=== PATIENT | female | born 1975 | race American Indian/Alaskan Native ===

== ENCOUNTER 2019-09-12 19:31 | Emergency (ER) | payer SELFPAY ==
[2019-09-12 19:59] VITALS: BP 151/98
--- NOTE | 2019-09-12 23:15 | XRay Report ---
CHEST 2 VIEWS INDICATION / CLINICAL INFORMATION: Cough, chest pain. Possible chemical exposure COMPARISON: None available. FINDINGS: SUPPORT DEVICES: None. HEART / MEDIASTINUM: No significant abnormality. LUNGS / PLEURA: No significant pulmonary or pleural abnormality. No pneumothorax. ADDITIONAL FINDINGS: No significant additional findings. IMPRESSION: 1. No acute findings. Signer Name: Humaira Good MD Signed: 09/12/2019 11:11 PM Workstation Name: [id number]
--- NOTE | 2019-09-13 00:23 | Emergency Department Report ---
- General Chief Complaint: Upper Respiratory Infection Stated Complaint: BAD COUGH,CHEST PAIN Source: patient Mode of arrival: Ambulatory Limitations: No Limitations - History of Present Illness Initial Comments: Patient is a 43-year-old -Faro[place] female with a history of heavy tobacco abuse who presents to the ED with acute onset persistent frontal sinus pressure and headache, nasal and sinus congestion, persistent dry cough with wheezing and shortness of breath for the last 2 days. 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 Patient states that her symptoms are worse at night when she lays down to sleep such that the cough and the congestion impede her sleep. Patient denies chest pain, dizziness, syncope, fever, chills, sore throat, nausea, vomiting, abdominal pain, headache, back pain, hemoptysis, or diarrhea. MD Complaint: cough, rhinorrhea, nasal congestion, sinus pain -: Sudden, days(s) (2) Severity: severe Severity scale (0 -10): 7 Quality: sharp, aching Consistency: constant Improves With: nothing Worsens With: deep breaths Associated Symptoms: denies other symptoms, rhinorrhea, nasal congestion, cough. denies: fever, chills, headache, sore throat, chest pain, shortness of breath, abdominal pain, nausea, vomiting, diarrhea, rash, confusion, right sweats, weight loss, epistaxis, hoarseness, ear pain Treatments Prior to Arrival: none - Related Data Previous Rx's Medication Instructions Recorded Last Taken Type Albuterol Sulfate [Proventil Hfa] 1 - 2 puff IH Q6H PRN #1 hfa.aer.ad 09/13/19 Unknown Rx Azithromycin [Zithromax Z-GRACIELA] 250 mg PO DAILY #6 tablet 09/13/19 Unknown Rx Benzonatate [Tessalon Perles] 100 mg PO Q8HR #30 capsule 09/13/19 Unknown Rx Cetirizine HCl [Zyrtec 10mg tab] 10 mg PO DAILY #30 tablet 09/13/19 Unknown Rx Ibuprofen [Motrin] 600 mg PO Q8H PRN #20 tablet 09/13/19 Unknown Rx methylPREDNISolone [Medrol 4MG 4 mg PO DAILY #21 tab.ds.pk 09/13/19 Unknown Rx DOSEPAK (21 tabs)] Allergies Allergy/AdvReac Type Severity Reaction Status Date / Time No Known Allergies Allergy Unverified 11/20/15 15:47 ED Review of Systems ROS: Stated complaint: BAD COUGH,CHEST PAIN Other details as noted in HPI Constitutional: denies: chills, fever Eyes: denies: eye pain, eye discharge, vision change ENT: congestion, other (Frontal sinus pressure and headache). denies: ear pain, throat pain Respiratory: cough, shortness of breath. denies: wheezing Cardiovascular: denies: chest pain, palpitations Endocrine: no symptoms reported Gastrointestinal: denies: abdominal pain, nausea, vomiting, diarrhea Genitourinary: denies: urgency, dysuria, discharge Musculoskeletal: denies: back pain, joint swelling, arthralgia Skin: denies: rash, lesions Neurological: headache. denies: weakness, paresthesias Psychiatric: denies: anxiety, depression Hematological/Lymphatic: denies: easy bleeding, easy bruising ED Past Medical Hx - Past Medical History Previous Medical History?: No - Surgical History Past Surgical History?: Yes Hx Cholecystectomy: Yes Additional Surgical History: , Right wrist - Social History Smoking Status: Current Every Day Smoker Substance Use Type: None - Medications Home Medications: Home Medications Medication Instructions Recorded Confirmed Last Taken Type Albuterol Sulfate [Proventil Hfa] 1 - 2 puff IH Q6H PRN #1 hfa.aer.ad 09/13/19 Unknown Rx Azithromycin [Zithromax Z-GRACIELA] 250 mg PO DAILY #6 tablet 09/13/19 Unknown Rx Benzonatate [Tessalon Perles] 100 mg PO Q8HR #30 capsule 09/13/19 Unknown Rx Cetirizine HCl [Zyrtec 10mg tab] 10 mg PO DAILY #30 tablet 09/13/19 Unknown Rx Ibuprofen [Motrin] 600 mg PO Q8H PRN #20 tablet 09/13/19 Unknown Rx methylPREDNISolone [Medrol 4MG 4 mg PO DAILY #21 tab.ds.pk 09/13/19 Unknown Rx DOSEPAK (21 tabs)] ED Physical Exam - General Limitations: No Limitations General appearance: alert, in no apparent distress - Head Head exam: Present: atraumatic, normocephalic, normal inspection - Eye Eye exam: Present: normal appearance, PERRL, EOMI Pupils: Present: normal accommodation - ENT ENT exam: Present: normal orophraynx, mucous membranes moist, TM's normal bilaterally, normal external ear exam, other (Grossly congested nasal passages; palpable frontal sinus tenderness.) - Neck Neck exam: Present: normal inspection, full ROM. Absent: lymphadenopathy - Respiratory Respiratory exam: Present: normal lung sounds bilaterally. Absent: respiratory distress, wheezes, rales, rhonchi, accessory muscle use - Cardiovascular Cardiovascular Exam: Present: regular rate, normal rhythm, normal heart sounds. Absent: systolic murmur, diastolic murmur, rubs, gallop - GI/Abdominal GI/Abdominal exam: Present: soft, normal bowel sounds. Absent: tenderness, guarding, rebound, hyperactive bowel sounds - Extremities Exam Extremities exam: Present: normal inspection, full ROM, normal capillary refill - Back Exam Back exam: Present: normal inspection, full ROM. Absent: tenderness, CVA tenderness (L), muscle spasm, paraspinal tenderness, vertebral tenderness - Neurological Exam Neurological exam: Present: alert, oriented X3 - Psychiatric Psychiatric exam: Present: normal affect, normal mood, anxious - Skin Skin exam: Present: warm, dry, intact, normal color. Absent: rash ED Course Vital Signs 09/12/19 19:57 Temperature 98.8 F Pulse Rate 69 Respiratory 20 Rate Blood Pressure 151/98 O2 Sat by Pulse 98 Oximetry ED Medical Decision Making - Radiology Data Radiology results: report reviewed Findings [facility] [address] [place] [address] XRay Report Signed Patient: LUIS ARMANDO GARRISON MR#: [id number] : 1975 Acct:[id number] Age/Sex: 43 / F ADM Date: 09/12/19 Loc: ED Attending Dr: Ordering Physician: TC MARIE MD Date of Service: 09/12/19 Procedure(s): XR chest routine 2V Accession Number(s): [id number] cc: ED MD CYNTHIA Fluoro Time In Minutes: CHEST 2 VIEWS INDICATION / CLINICAL INFORMATION: Cough, chest pain. Possible chemical exposure COMPARISON: None available. FINDINGS: SUPPORT DEVICES: None. HEART / MEDIASTINUM: No significant abnormality. LUNGS / PLEURA: No significant pulmonary or pleural abnormality. No pneumothorax. ADDITIONAL FINDINGS: No significant additional findings. IMPRESSION: 1. No acute findings. Signer Name: Humaira Good MD Signed: 09/12/2019 11:11 PM Workstation Name: [id number] Transcribed By: Dictated By: Humaira Good MD Electronically Authenticated By: Humaira Good MD Signed Date/Time: 09/12/192310 DD/ 09 TD/TT: - Medical Decision Making This is a 43-year-old -Faro[place] female with a history of heavy tobacco abuse who presents to the ED with acute onset persistent frontal sinus pressure and headache, nasal and sinus congestion, persistent dry cough with wheezing and shortness of breath for the last 2 days. 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 Patient states that her symptoms are worse at night when she lays down to sleep such that the cough and the congestion impede her sleep. In the ED, patient is alert and oriented x3 and is not in distress. Chest x-ray shows no acute cardiopulmonary abnormalities or pneumonitis. Patient was treated for pain in the ED and discharged home on medications. Patient was advised to follow-up with her primary care physician in 7 to 10 days for reevaluation. Patient was also advised to consider quiting cigarette smoking habit to improve on her symptoms. Patient was otherwise advised to return to the ED immediately if symptoms get worse. - Differential Diagnosis Sinusitis; Bronchitis; URI; Rhinitis; Pneumonia Critical care attestation.: If time is entered above; I have spent that time in minutes in the direct care o f this critically ill patient, excluding procedure time. ED Disposition Clinical Impression: Acute upper respiratory infection Acute frontal sinusitis, unspecified Qualifiers: Recurrence: non-recurrent Qualified Code(s): J01.10 - Acute frontal sinusitis, unspecified Acute bronchitis Qualifiers: Bronchitis organism: unspecified organism Qualified Code(s): J20.9 - Acute bronchitis, unspecified Disposition: DC-01 TO HOME OR SELFCARE Is pt being admited?: No Does the pt Need Aspirin: No Condition: Stable Instructions: Acute Bronchitis (ED), Acute Bacterial Rhinosinusitis (ED), Upper Respiratory Infection (ED) Additional Instructions: Take medication with food, drink plenty of fluids and follow-up with your primary care physician in 7 to 10 days for reevaluation. Consider quitting tobacco smoking 2 improve on your symptoms. Prescriptions: methylPREDNISolone [Medrol 4MG DOSEPAK (21 tabs)] 4 mg PO DAILY #21 tab.ds.pk Ibuprofen [Motrin] 600 mg PO Q8H PRN #20 tablet PRN Reason: Pain Albuterol Sulfate [Proventil Hfa] 1 - 2 puff IH Q6H PRN #1 hfa.aer.ad PRN Reason: Dyspnea Benzonatate [Tessalon Perles] 100 mg PO Q8HR #30 capsule Azithromycin [Zithromax Z-GRACIELA] 250 mg PO DAILY #6 tablet Cetirizine HCl [Zyrtec 10mg tab] 10 mg PO DAILY #30 tablet Referrals: PRIMARY CARE, [Primary Care Provider] - 3-5 Days Time of Disposition: 00:23 Print Language: PORTUGUESE
[2019-09-13] MEDS ORDERED: ACETAMINOPHEN 325 MG TAB PO ONE (00:24)
[2019-09-13] MEDS ORDERED: diphenhydrAMINE 25 MG CAP PO ONE (00:24)
[2019-09-13] MEDS ORDERED: predniSONE 20 MG TAB PO ONE (00:24)
== END 2019-09-13 00:40 | disposition home or self-care (01) ==
LOC: ED 19:31
DX: J01.10 Acute frontal sinusitis, unspecified (principal); J06.9 Acute upper respiratory infection, unspecified; J02.9 Acute pharyngitis, unspecified; F17.200 Nicotine dependence, unspecified, uncomplicated; Z90.49 Acquired absence of other specified parts of digestive tract; Z98.890 Other specified postprocedural states; Z79.899 Other long term (current) drug therapy
CPT/HCPCS: 71046; 99283; J7512

== ENCOUNTER 2021-11-04 13:23 | Emergency (ER) | payer SELFPAY ==
[2021-11-04 15:41] LABS: Alanine Aminotransferase 59 units/L (7-56); Albumin 4.5 g/dL (3.9-5); BUN/Creatinine Ratio 21; Blood Urea Nitrogen 17 mg/dL (7-17); Calcium 8.6 mg/dL (8.4-10.2); Hemolysis Index 87
[2021-11-04 16:02] LABS: Basophils % (Auto) 0.7 % (0.0-1.8); Eosinophils % (Auto) 0.2 % (0.0-4.3); Hematocrit 46.2 % (30.3-42.9); Hemoglobin 15.1 gm/dl (10.1-14.3); Lymphocytes # (Auto) 1.2 K/mm3 (1.2-5.4); Lymphocytes % (Auto) 31.9 % (13.4-35.0); Mean Corpuscular HGB Conc 33 % (30-34); Mean Corpuscular Volume 86 fl (79-97); Monocytes # (Auto) 0.4 K/mm3 (0.0-0.8); Monocytes % (Auto) 10.3 % (0.0-7.3); Platelet Count 140 K/mm3 (140-440); Red Blood Count 5.35 M/mm3 (3.65-5.03); Red Cell Distribution Width 14.5 % (13.2-15.2)
--- NOTE | 2021-11-04 16:51 | XRay Report ---
CHEST 1 VIEW INDICATION / CLINICAL INFORMATION: cough, shortness of breath. COMPARISON: 09/12/2019 FINDINGS: SUPPORT DEVICES: None. HEART / MEDIASTINUM: No significant abnormality. LUNGS / PLEURA: No significant pulmonary or pleural abnormality. No pneumothorax. ADDITIONAL FINDINGS: No significant additional findings. IMPRESSION: 1. No acute findings. Signer Name: Jeffrey Rodriguez MD Signed: 11/04/2021 4:46 PM Workstation Name: [id number]
--- NOTE | 2021-11-04 18:36 | Emergency Department Report ---
ED N/V/D HPI - General Chief complaint: Nausea/Vomiting/Diarrhea Stated complaint: SHORTNESS OF BREATH/STOMACH PAIN/BODYACHE Time Seen by Provider: 11/04/21 18:23 Source: patient Mode of arrival: Ambulatory Limitations: No Limitations - History of Present Illness Initial comments: Patient is a 46-year-old female who presents with onset 5 days ago of subjective fever, cough nausea, vomiting, diarrhea, shortness of breath, myalgias and fatigue. The day of onset of symptoms she did a home COVID test that was negative. She did return the day prior from a vacation in [facility] but knows of no specific exposure to COVID. MD complaint: nausea, vomiting, diarrhea -: Gradual Description of Diarrhea: other (Occasional soft less than 5 a day.) Associated Abdominal Pain: No Associated Symptoms: myalgias, chest pain, cough, fever/chills, loss of appetite, malaise, nausea/vomiting, shortness of breath. denies: diaphoresis, headaches, rash, dysuria - Related Data Previous Rx's Medication Instructions Recorded Last Taken Type Albuterol Sulfate [Proventil Hfa] 1 - 2 puff IH Q6H PRN #1 hfa.aer.ad 09/13/19 Unknown Rx Cetirizine HCl [Zyrtec 10mg tab] 10 mg PO DAILY #30 tablet 09/13/19 Unknown Rx Ibuprofen [Motrin 600 MG tab] 600 mg PO Q8H PRN #20 tablet 09/13/19 Unknown Rx Benzonatate [Tessalon Perles] 100 mg PO Q8HR PRN #30 cap 11/04/21 Unknown Rx Allergies Allergy/AdvReac Type Severity Reaction Status Date / Time No Known Allergies Allergy Unverified 11/20/15 15:47 ED Review of Systems ROS: Stated complaint: SHORTNESS OF BREATH/STOMACH PAIN/BODYACHE Other details as noted in HPI Comment: All other systems reviewed and negative Constitutional: fever. denies: chills Eyes: denies: eye discharge, vision change ENT: throat pain (At onset now resolved), congestion. denies: ear pain Respiratory: cough, shortness of breath Cardiovascular: chest pain. denies: palpitations, dyspnea on exertion, edema, syncope, paroxysmal nocturnal dyspnea Endocrine: denies: unexplained weight gain, unexplained weight loss Gastrointestinal: as per HPI. denies: abdominal pain, hematemesis, melena, hematochezia Genitourinary: denies: urgency, dysuria, frequency Musculoskeletal: myalgia Skin: denies: rash Neurological: denies: headache, numbness, paresthesias, confusion, vertigo Psychiatric: denies: anxiety, depression Hematological/Lymphatic: denies: easy bleeding, easy bruising ED Past Medical Hx - Past Medical History Hx Hypertension: Yes - Surgical History Hx Cholecystectomy: Yes Additional Surgical History: , Right wrist - Family History Family history: no significant - Social History Smoking Status: Current Every Day Smoker Substance Use Type: Alcohol, Marijuana - Medications Home Medications: Home Medications Medication Instructions Recorded Confirmed Last Taken Type Albuterol Sulfate [Proventil Hfa] 1 - 2 puff IH Q6H PRN #1 hfa.aer.ad 09/13/19 Unknown Rx Cetirizine HCl [Zyrtec 10mg tab] 10 mg PO DAILY #30 tablet 09/13/19 Unknown Rx Ibuprofen [Motrin 600 MG tab] 600 mg PO Q8H PRN #20 tablet 09/13/19 Unknown Rx Benzonatate [Tessalon Perles] 100 mg PO Q8HR PRN #30 cap 11/04/21 Unknown Rx ED Physical Exam - General Limitations: No Limitations General appearance: alert, in no apparent distress - Head Head exam: Present: atraumatic, normocephalic - Eye Eye exam: Present: normal appearance, conjunctival injection (Mild conjunctival injection bilaterally). Absent: scleral icterus - ENT ENT exam: Present: normal orophraynx, mucous membranes moist, TM's normal bilaterally - Neck Neck exam: Present: normal inspection, full ROM. Absent: tenderness, meningismus - Respiratory Respiratory exam: Present: normal lung sounds bilaterally. Absent: respiratory distress, wheezes, rales, rhonchi, stridor - Cardiovascular Cardiovascular Exam: Present: regular rate, normal rhythm, normal heart sounds - GI/Abdominal GI/Abdominal exam: Present: soft, normal bowel sounds. Absent: distended, tenderness, guarding - Back Exam Back exam: Present: normal inspection, full ROM - Neurological Exam Neurological exam: Present: alert, oriented X3, CN II-XII intact - Psychiatric Psychiatric exam: Present: normal affect, normal mood - Skin Skin exam: Present: warm, dry, intact, normal color. Absent: rash ED Course Vital Signs 11/04/21 11/04/21 14:07 19:32 Temperature 98.3 F Pulse Rate 82 92 H Respiratory 18 14 Rate Blood Pressure 136/101 132/98 [Left] O2 Sat by Pulse 100 100 Oximetry ED Medical Decision Making - Lab Data Result diagrams: 11/04/21 14:35 11/04/21 14:35 - Radiology Data Radiology results: report reviewed, image reviewed [facility] [address] [place] [address] XRay Report Signed Patient: LUIS ARMANDO GARRISON MR#: [id number] : 1975 Acct:[id number] Age/Sex: 46 / F ADM Date: 11/04/21 Loc: ED Attending Dr: Ordering Physician: TC MARIE MD Date of Service: 11/04/21 Procedure(s): XR chest 1V ap Accession Number(s): [id number] cc: ED MD CYNTHIA Fluoro Time In Minutes: CHEST 1 VIEW INDICATION / CLINICAL INFORMATION: cough, shortness of breath. COMPARISON: 09/12/2019 FINDINGS: SUPPORT DEVICES: None. HEART / MEDIASTINUM: No significant abnormality. LUNGS / PLEURA: No significant pulmonary or pleural abnormality. No pneumothorax. ADDITIONAL FINDINGS: No significant additional findings. IMPRESSION: 1. No acute findings. Signer Name: Jeffrey Rodriguez MD Signed: 11/04/2021 4:46 PM Workstation Name: [id number] Transcribed By: TL Dictated By: Jeffrey Rodriguez MD Electronically Authenticated By: Jeffrey Rodriguez MD Signed Date/Time: 11/04/211645 DD/ 45 TD/TT: Print - Medical Decision Making Viral syndrome. We will treat conservatively in this otherwise healthy patient. - Differential Diagnosis URI. Viral syndrome. Suspected COVID Critical care attestation.: If time is entered above; I have spent that time in minutes in the direct care of this critically ill patient, excluding procedure time. ED Disposition Clinical Impression: Viral syndrome, Suspected COVID-19 virus infection Disposition: 01 HOME / SELF CARE / HOMELESS Is pt being admited?: No Condition: Stable Instructions: COVID-19 Frequently Asked Questions, COVID-19, Viral Respiratory Infection, [id number], COVID-19: How to Protect Yourself and Others - CDC Additional Instructions: Fluids. Guaifenesin 1200 mg twice daily. Warm compresses to the sinuses. Warm salt water gargles. Normal saline to nasal passages. Tylenol as needed for fever or pain. Monitor pulse oximetry (you can buy this at your pharmacy)any readings below 90% go to nearest ER. Return if any worsening of symptoms. Recommend repeat COVID test today and tomorrow and isolate until fever free for 24 hours without Tylenol or Motrin and all symptoms improving. If COVID test positive should quarantine for 5 more days. Prescriptions: Benzonatate [Tessalon Perles] 100 mg PO Q8HR PRN #30 cap PRN Reason: Cough Referrals: JOHN DWYER MD [Staff Physician] - 3-5 Days Forms: Work/School Release Form(ED) Time of Disposition: 18:55
[2021-11-04 19:33] VITALS: BP 132/98
[2021-11-04 19:58] LABS: Bacteria,Urine 2+ /HPF (Negative); Hyaline Casts,Urine 10 /LPF; Mucus,Urine 3+ /HPF
[2021-11-04 20:16] LABS: WBC,Urine > 182.0 /HPF (0.0-6.0)
[2021-11-04 20:25] LABS: Color,Urine Yellow (Yellow); Ictotest,Urine Negative (Negative)
== END 2021-11-04 19:33 | disposition home or self-care (01) ==
LOC: ED 13:23
DX: B34.9 Viral infection, unspecified (principal); Z20.822 Contact with and (suspected) exposure to COVID-19; I10 Essential (primary) hypertension; Z90.49 Acquired absence of other specified parts of digestive tract; F17.200 Nicotine dependence, unspecified, uncomplicated
CPT/HCPCS: 36415; 71045; 80053; 81001; 83690; 84703; 85025; 99283